=== PATIENT | male | born 1945 | race Caucasian/White ===

== ENCOUNTER 2024-04-10 15:26 | Emergency (ER) | payer MEDICARE, BC ==
[2024-04-10] MEDS ORDERED: Acetaminophen/HYDROcodone 325-5 MG Tab ONE (16:45)
== END 2024-04-10 17:00 | disposition home or self-care (01) ==
LOC: LB.ED 15:26
DX: S82.52XA Displaced fracture of medial malleolus of left tibia, initial encounter for closed fracture (principal); Z79.82 Long term (current) use of aspirin; Z79.899 Other long term (current) drug therapy; X50.1XXA Overexertion from prolonged static or awkward postures, initial encounter
CPT/HCPCS: 29515; 73610-LT; 99283; 99283-25; A9270-GY